=== PATIENT | female | born 1990 | race Caucasian/White ===

== ENCOUNTER 2023-09-21 08:12 | Emergency (ER) | payer OTHER ==
[~2023-09-21] VITALS: Ht 175.2 cm; Wt 104.3 kg
[~2023-09-21 08:12] MED LIST: AMOXICILLIN500 MG PO; ANAPROX DS550 MG PO; BACTRIM DS 8001 TA1 PO; CLEOCIN HCL300 MG PO; COMPAZINE10 MG PO; MACROBID100 MG PO; PREDNISONE10 MG PO; SUBUTEX8 MG SL; TRAMADOL HCL50 MG PO; TRIMOX500 MG PO; ZITHROMAX Z PA250 MG PO; ZOFRAN ODT4 MG PO
[2023-09-21 08:49] LABS: BILIRUBIN 1+ (Negative); BLOOD 3+ (Negative); CLARITY Cloudy (Clear); COLOR Dark Yellow (Yellow); GLUCOSE Negative (Negative); KETONE Trace (Negative); LEUKO ESTERASE Trace (Negative); NITRITE Negative (Negative); PH 5.5 (4.5-8.0); SPECIFIC GRAVITY >= 1.030 (1.001-1.030)
[2023-09-21 08:56] LABS: BACTERIA 2+; EPITHELIAL CELLS 16-20; RBC TNTC rbc/hpf (0-2)
[2023-09-21 08:57] LABS: MUCOUS 3+
[2023-09-21 09:38] LABS: CHLORIDE 107 mmol/L (98-107); POTASSIUM 4.2 mmol/L (3.4-5.1)
[2023-09-21 09:39] LABS: BUN < 5 mg/dl (9-23)
[2023-09-21] MEDS ORDERED: CEPHALEXIN 500 MG CAP PO ONE (11:25)
[2023-09-21] MEDS ORDERED: CEPHALEXIN500 M1 PO (11:43)
== END 2023-09-21 13:54 | disposition home or self-care (01) ==
LOC: ED 08:12
PROVIDERS: Internal Medicine
DX: O23.42 Unspecified infection of urinary tract in pregnancy, second trimester (principal); N39.0 Urinary tract infection, site not specified; R31.9 Hematuria, unspecified; F17.200 Nicotine dependence, unspecified, uncomplicated; Z3A.18 18 weeks gestation of pregnancy; Z90.89 Acquired absence of other organs

== ENCOUNTER → 2024-01-17 | Emergency (ER) | payer SELFPAY ==
[~2024-01-17] VITALS: Ht 175.3 cm; Wt 104.3 kg
[~2024-01-17] MED LIST changes: +CEPHALEXIN500 M1 PO
== END ==
LOC: ED 12:59
DX: S99.922A Unspecified injury of left foot, initial encounter (principal); Z53.21 Procedure and treatment not carried out due to patient leaving prior to being seen by health care provider; X58.XXXA Exposure to other specified factors, initial encounter; Y93.89 Activity, other specified; Y92.89 Other specified places as the place of occurrence of the external cause; Y99.8 Other external cause status

== ENCOUNTER 2024-02-18 20:14 | Emergency (ER) | payer MEDICAID ==
[~2024-02-18] VITALS: Ht 165.1 cm; Wt 104.3 kg
[2024-02-18] MEDS ORDERED: Tdap Vaccine 0.5 ML SYR (Adult Vaccine) IM ONE (20:40)
[2024-02-18] MEDS ORDERED: Ondansetron Hydrochloride 4 MG TAB SL ONE (22:10)
[2024-02-18] MEDS ORDERED: Sulfamethoxazole/Trimethopri 1 TAB TAB PO ONE (22:10)
[2024-02-18] MEDS ORDERED: Acetaminophen/Hydrocodone 5 MG/325 MG TABLET PO ONE (22:10)
[2024-02-18] MEDS ORDERED: SEPTDS PO (22:23)
== END 2024-02-18 22:27 | disposition home or self-care (01) ==
LOC: ED 20:14
DX: S90.32XA Contusion of left foot, initial encounter (principal); L03.032 Cellulitis of left toe; F17.200 Nicotine dependence, unspecified, uncomplicated; Z90.89 Acquired absence of other organs; W22.8XXA Striking against or struck by other objects, initial encounter; Y93.89 Activity, other specified; Y92.009 Unspecified place in unspecified non-institutional (private) residence as the place of occurrence of the external cause; Y99.8 Other external cause status